=== PATIENT | female | born 1990 | race Caucasian/White ===

== ENCOUNTER 2017-08-31 15:36 | Inpatient (IN) | payer OTHER ==
[2017-08-31 16:16] LABS: Hematocrit 40 % (35-47); Hemoglobin 13.8 g/dl (12.0-16.0); Mean Corpuscular HGB Conc 34 g/dl (31-36); Mean Corpuscular Hemoglobin 31 pg (27-31); Mean Corpuscular Volume 91 fL (80-97); Mean Platelet Volume 9 um3 (7.4-10.4); Red Blood Count 4.38 10^6/ul (4.0-5.4); Red Cell Distribution Width 12 % (10.5-15); White Blood Count 8.5 10^3/ul (3.5-10.8)
[2017-08-31 16:30] LABS: ALT 22 U/L (7-52); AST 17 U/L (13-39); Albumin 4.1 g/dL (3.2-5.2); Alkaline Phosphatase 35 U/L (34-104); Anion Gap 6 mmol/L (2-11); BUN/Creatinine Ratio 17.7 (8-20); Blood Urea Nitrogen 14 mg/dL (6-24); CO2 Carbon Dioxide 26 mmol/L (22-32); Calcium 9.2 mg/dL (8.6-10.3); Chloride 105 mmol/L (101-111); EGFR African American 111.4 (>60); EGFR Non-African American 86.7 (>60); Globulin 2.8 g/dL (2-4); Glucose 89 mg/dL (70-100); Potassium 4.2 mmol/L (3.5-5.0); Sodium 137 mmol/L (133-145); Total Protein 6.9 g/dL (6.4-8.9)
[2017-08-31 16:59] LABS: Acetaminophen < 15 mcg/mL; Alcohol < 10 mg/dL (<10); Salicylate < 2.50 mg/dL (<30)
[2017-08-31 17:14] LABS: TSH (Thyroid Stimulating Horm) 1.67 mcIU/mL (0.34-5.60)
[2017-08-31 19:00] LABS: Urine Bacteria Absent (Absent); Urine Bilirubin Negative (Negative); Urine Glucose Negative (Negative); Urine Nitrite Negative (Negative)
[2017-08-31 19:09] LABS: Benzodiazepine Urine Screen None Detected (None Detect)
--- NOTE | 2017-09-01 08:40 | ED ---
Deshawn Bianchi Angela, scribed for Edward Cervantes MD on 08/31/17 at 1602 . Psychiatric Complaint - HPI Summary HPI Summary: This pt is a 27 y/o female presenting to [facility] c/o SI with a plan and depression. Pt reports that she has a PMHx of bipolar disorder and depression. She notes that she has a plan to go to a place that is 24 minutes away from her house and overdose on Benadryl and alcohol. Pt states she has not had her medications adjusted since December 2015. Pt reports that she has been trying to get an appointment for the past 3 months now. She is currently on Depakote, lexapro, wellbutrin. - History Of Current Complaint Chief Complaint: EDMentalHealth Time Seen by Provider: 08/31/17 15:47 Hx Obtained From: Patient Onset/Duration: Lasting Days Timing: Days Character: Depressed Aggravating Factor(s): Recent Stress - not being able to get an appointment Associated Signs And Symptoms: Positive: Hostile Has Suicidal: Reports: Thoughts, With A Plan Has Homicidal: Denies: Thoughts, With A Plan - Allergies/Home Medications Allergies/Adverse Reactions: Allergies Allergy/AdvReac Type Severity Reaction Status Date / Time Sulfa Antibiotics Allergy Anaphylatic Verified 08/31/17 16:39 Shock PMH/Surg Hx/FS Hx/Imm Hx Endocrine/Hematology History: Denies: Hx Diabetes Cardiovascular History: Denies: Hx Hypertension Psychiatric History: Reports: Hx Anxiety, Hx Depression, Hx Bipolar Disorder Infectious Disease History: No Infectious Disease History: Denies: Traveled Outside the [place] in Last 30 Days - Family History Known Family History: Negative: Hypertension - Social History Alcohol Use: None Substance Use Type: Reports: None Smoking Status (MU): Never Smoked Tobacco Review of Systems Negative: Fever, Chills Eyes: Negative ENT: Negative Cardiovascular: Negative Respiratory: Negative Gastrointestinal: Negative Genitourinary: Negative Musculoskeletal: Negative Positive: Depressed, Other - SI with a plan All Other Systems Reviewed And Are Negative: Yes Physical Exam - Summary Physical Exam Summary: VITAL SIGNS: Reviewed. GENERAL: Patient is a well-developed and nourished female who is lying comfortable in the stretcher. Patient is not in any acute respiratory distress. Pt is crying and appears sad. HEAD AND FACE: No signs of trauma. No ecchymosis, hematomas or skull depressions. No sinus tenderness. EYES: PERRLA, EOMI x 2, No injected conjunctiva, no nystagmus. EARS: Hearing grossly intact. Ear canals and tympanic membranes are within normal limits. MOUTH: Oropharynx within normal limits. NECK: Supple, trachea is midline, no adenopathy, no JVD, no carotid bruit, no c- spine tenderness, neck with full ROM. CHEST: Symmetric, no tenderness at palpation LUNGS: Clear to auscultation bilaterally. No wheezing or crackles. CVS: Regular rate and rhythm, S1 and S2 present, no murmurs or gallops appreciated. ABDOMEN: Soft, non-tender. No signs of distention. No rebound no guarding, and no masses palpated. Bowel sounds are normal. EXTREMITIES: FROM in all major joints, no edema, no cyanosis or clubbing. NEURO: Alert and oriented x 3. No acute neurological deficits. Speech is normal and follows commands. SKIN: Dry and warm PSYCH: Depressed, quiet, with suicidal thoughts and plan. No homicidal thoughts or plan. No signs of psychosis or pressure speech. No tangential speech. Triage Information Reviewed: Yes Vital Signs On Initial Exam: Initial Vitals Temp Pulse Resp BP Pulse Ox 98.4 F 78 20 122/74 99 08/31/17 15:40 08/31/17 15:40 08/31/17 15:40 08/31/17 15:40 08/31/17 15:40 Vital Signs Reviewed: Yes - Alonzo Coma Scale Coma Scale Total: 15 Diagnostics - Vital Signs Vital Signs Temp Pulse Resp BP Pulse Ox 08/31/17 15:40 98.4 F 78 20 122/74 99 - Laboratory Result Diagrams: 08/31/17 16:03 08/31/17 16:03 Lab Statement: Any lab studies that have been ordered have been reviewed, and results considered in the medical decision making process. Course/Dx - Course Assessment/Plan: This pt is a 27 y/o female presenting to [facility] c/o SI with a plan and depression. Pt reports that she has a PMHx of bipolar disorder and depression. She notes that she has a plan to go to a place that is 24 minutes away from her house and overdose on Benadryl and alcohol. Pt states she has not had her medications adjusted since December 2015. Pt reports that she has been trying to get an appointment for the past 3 months now. She is currently on Depakote, lexapro, wellbutrin. All blood work within normal limits. Pt is medically cleared. Pt is a waiting for MHE. Pt will be signed out at shift change pending dispo, awaiting MHE. - Differential Dx/Clinical Impression Provider Diagnosis: Depression Discharge - Discharge Plan Condition: Stable Disposition: OTHER Discharge Disposition Comment: signed out at shift change, pending dispo, awaiting M[facility]. Referrals: [facility] - Jose Maria MONSALVE [Primary Care Provider] - The documentation as recorded by the Deshawn henderson Angela accurately reflects the service I personally performed and the decisions made by , Edward Cervantes MD.
[2017-09-01] MEDS ORDERED: Divalproex ER TAB(*) 500 MG PO ONE (09:16)
[2017-09-01] MEDS: BuPROPion XL* 300 MG TAB.XL PO SCH (10:35)
[2017-09-01 11:26] LABS: Manual Entry Verification HAN0055; UR Preg Internal Control QC Line Present
[2017-09-01] MEDS ORDERED: Al Hydrox/Mg Hydrox/Simet LIQ* 30 ML UDC PO PRN (11:29)
[2017-09-01] MEDS ORDERED: Acetaminophen TAB* 325 MG PO PRN (11:29)
[2017-09-01] MEDS: hydrOXYzine HCL TAB* 50 MG PO PRN (19:44)
[2017-09-01] MEDS: Citalopram TAB* 40 MG PO SCH (21:03)
[2017-09-01] MEDS: Divalproex DR TAB(*) 500 MG PO SCH (21:03)
[2017-09-01] MEDS: diPHENhydraMINE PO* 50 MG PO SCH (21:03)
[2017-09-02] MEDS: Divalproex DR TAB(*) 500 MG PO SCH (08:20)
[2017-09-02] MEDS: hydrOXYzine HCL TAB* 50 MG PO PRN ×2 (09:17→20:20)
[2017-09-02] MEDS: BuPROPion XL* 300 MG TAB.XL PO SCH (10:12)
--- NOTE | 2017-09-02 12:02 | PN ---
[facility]: Group Therapy Note - Service Type Service Type: 49941 Group Psychotherapy - Cognitive Behavioral Group Therapy ( CBT):Patient attended CBT programming this morning and presented with flat affect that did not vary with discussion. Although responsive to direct prompts to respond to questions, patient did not engage in spontaneous conversation.
[2017-09-02] MEDS: Divalproex DR TAB(*) 250 MG PO SCH (20:19)
[2017-09-02] MEDS: diPHENhydraMINE PO* 50 MG PO SCH (20:20)
[2017-09-02] MEDS: Citalopram TAB* 40 MG PO SCH (20:21)
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
[2017-09-03] MEDS: Divalproex DR TAB(*) 250 MG PO SCH ×2 (08:37→08:51)
[2017-09-03] MEDS: diPHENhydraMINE PO* 50 MG PO SCH (08:38)
[2017-09-03] MEDS: CMCS:Lisdexamfetamine(NF) 10 MG CAP PO SCH (08:52)
[2017-09-03] MEDS: buPROPion SR TAB.SR* 200 MG PO SCH (08:52)
[2017-09-03] MEDS: hydrOXYzine HCL TAB* 50 MG PO PRN (09:44)
--- NOTE | 2017-09-03 16:08 | PN ---
Subjective - Subjective Service Type: 34447 Hosp care 15 min low complexity Subjective: Patient denies SI. Would like to go outside on fresh air break. Patient complains about insomnia and requests an increase in her Benadryl to 100mg, which is what she takes on an outpatient basis. No other complaints. Objective - Appearance Appearance: Well Developed/Nourished Dysmorphic Features: No Hygiene: Normal Grooming: Well Kept - Behavior Psychomotor Activities: Normal Exhibits Abnormal Movement: No - Attitude and Relatedness Attitude and Relatedness: Cooperative Eye Contact: Fair - Speech Quality: Unpressured Latencies: Normal Quantity: Appropriate - Mood Patient's Decription of Mood: "Good" - Affect Observed Affect: Fair Affect Consistent with: Euthymia - Thought Process Patient's Thought Process: Coherent Thought Content: No Passive Wish, No Suicidal Planning, No Homicidal Ideation, No Paranoid Ideation - Sensorium Experiencing Hallucinations: No, Sensorium is Clear Type of Hallucinations: Visual: No, Auditory: No, Command: No - Level of Consciousness Level of Consciousness: Alert Orientation: Yes Intact, Yes Orientated to Time, Yes Orientated to Place, Yes Orientated to Person - Impulse Control Impulse Control: Tenuous - Insight and Judgement Insight and Judgement: Fair - Group Participation Particating in Group Activities: Yes - Medication Management Medication Management Adherence: Yes Assessment - Assessment Merits Inpatient Hospitalization: Consolidate Improvements, Pending Safe DC Plan Inpatient DSM-IV Dx: Bipolar DO Type II Clinical Impression: 27 y.o. , white female [employer] student with a history of bipolar disorder, arrives seeking voluntary psychiatric admission for increased rapid mood cycling and inability to contract for safety. Plan - Plan Treatment Plan: Name: HEAVENLY CANAS Birthdate: 1990 [id number] Patient having Depakote titrated, bupropion tapered and new to Vyvanse for binge -eating disorder. Will increase scheduled Benadryl to 100mg PO qhs for insomnia. Continue inpatient treatment. Continued Medication Management: Different Medication Medications: Current Medications Acetaminophen (Tylenol Tab*) 650 mg PO Q4H PRN PRN Reason: for pain; or Temp >101 F Al Hydrox/Mg Hydrox/Simethicone (Maalox Plus*) 30 ml PO Q4H PRN PRN Reason: INDIGESTION Bupropion HCl (Wellbutrin Sr Tab*) 200 mg PO DAILY [facility] Last Admin: 09/03/17 08:52 Dose: 200 mg Citalopram Hydrobromide (Celexa Tab*) 40 mg PO BEDTIME [facility] Last Admin: 09/02/17 20:21 Dose: 40 mg Divalproex Sodium (Depakote Dr Tab(*)) 750 mg PO BID [facility] Last Admin: 09/03/17 08:51 Dose: 750 mg Hydroxyzine HCl (Atarax Tab*) 50 mg PO Q6H PRN PRN Reason: AGITATION/ANXIETY/INSOMNIA Last Admin: 09/03/17 09:44 Dose: 50 mg Lisdexamfetamine Dimesylate (Vyvanse(Nf)) 60 mg PO DAILY [facility] Last Admin: 09/03/17 08:52 Dose: 60 mg - Discharge Plan Discharge Plan: Inpatient Hospitalization
[2017-09-03] MEDS: Citalopram TAB* 40 MG PO SCH (20:39)
[2017-09-04] MEDS: buPROPion SR TAB.SR* 200 MG PO SCH (08:24)
[2017-09-04] MEDS: Divalproex DR TAB(*) 250 MG PO SCH ×2 (08:24→20:11)
[2017-09-04] MEDS: CMCS:Lisdexamfetamine(NF) 10 MG CAP PO SCH (08:25)
[2017-09-04] MEDS: hydrOXYzine HCL TAB* 50 MG PO PRN ×2 (08:26→16:50)
[2017-09-04] MEDS: Citalopram TAB* 40 MG PO SCH (20:12)
[2017-09-04] MEDS: diPHENhydraMINE PO* 50 MG PO SCH (20:12)
[2017-09-05] MEDS: buPROPion SR TAB.SR* 200 MG PO SCH (08:33)
[2017-09-05] MEDS: CMCS:Lisdexamfetamine(NF) 10 MG CAP PO SCH (08:33)
[2017-09-05] MEDS: Divalproex DR TAB(*) 250 MG PO SCH ×2 (08:33→20:44)
[2017-09-05] MEDS ORDERED: diPHENhydraMINE PO* 50 MG PO PRN (15:28)
--- NOTE | 2017-09-05 15:34 | PN ---
Subjective - Subjective Service Type: 21483 Hosp care 15 min low complexity Subjective: Patient reports much improvement in mood. She states she is feeling "more like myself" and denies SI or urges to self harm. She c/o anxiety and states she has panicky symptoms approx 1-3x per day, seemingly without trigger. She reports sleep is "terrible" and that she is able to fall asleep without difficulty but is wakes often. She also reports intense and vivid dreams. Objective - Appearance Appearance: Well Developed/Nourished, Obese Dysmorphic Features: No Hygiene: Normal Grooming: Well Kept - Behavior Psychomotor Activities: Normal Exhibits Abnormal Movement: No - Attitude and Relatedness Attitude and Relatedness: Cooperative Eye Contact: Good - Speech Quality: Unpressured Latencies: Normal Quantity: Copious - Mood Patient's Decription of Mood: "Great" - Affect Observed Affect: Good Affect Consistent with: Euthymia - Thought Process Patient's Thought Process: Coherent, Goal Directed Thought Content: No Passive Wish, No Suicidal Planning, No Homicidal Ideation, No Paranoid Ideation - Sensorium Experiencing Hallucinations: No, Sensorium is Clear Type of Hallucinations: Visual: No, Auditory: No, Command: No - Level of Consciousness Level of Consciousness: Alert Orientation: Yes Intact, Yes Orientated to Time, Yes Orientated to Place, Yes Orientated to Person - Impulse Control Impulse Control: Tenuous - Insight and Judgement Insight and Judgement: Good - Group Participation Particating in Group Activities: Yes - Medication Management Medication Management Adherence: Yes Assessment - Assessment Merits Inpatient Hospitalization: For Immediate Safety, For Stabilization, For Discharge Planning Inpatient DSM-IV Dx: Bipolar DO Type II; RUTH; panic d/o; binge-eating d/o Clinical Impression: Patient is a 27yo female, , 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 She reports hx of bipolar II d/o with recent episodes of rapid cycling. She presented to her outpatient therapist at [facility] with suicidal ideation. She merits hospitalization for immediate safety and stabilization. Plan - Plan Treatment Plan: Name: HEAVENLY CANAS Birthdate: 1990 [id number] Continue intensive acute psychiatric treatment. Stop buproprion to improve sleep and add prazosin at bedtime for anxiety. Discharge planning to include and [facility]. Continued Medication Management: Different Medication Medications: Current Medications Acetaminophen (Tylenol Tab*) 650 mg PO Q4H PRN PRN Reason: for pain; or Temp >101 F Al Hydrox/Mg Hydrox/Simethicone (Maalox Plus*) 30 ml PO Q4H PRN PRN Reason: INDIGESTION Bupropion HCl (Wellbutrin Sr Tab*) 200 mg PO DAILY [facility] Last Admin: 09/05/17 08:33 Dose: 200 mg Citalopram Hydrobromide (Celexa Tab*) 40 mg PO BEDTIME [facility] Last Admin: 09/04/17 20:12 Dose: 40 mg Diphenhydramine HCl (Benadryl Po*) 100 mg PO BEDTIME [facility] Last Admin: 09/04/17 20:12 Dose: 100 mg Divalproex Sodium (Depakote Dr Tab(*)) 750 mg PO BID [facility] Last Admin: 09/05/17 08:33 Dose: 750 mg Hydroxyzine HCl (Atarax Tab*) 50 mg PO Q6H PRN PRN Reason: AGITATION/ANXIETY/INSOMNIA Last Admin: 09/04/17 16:50 Dose: 50 mg Lisdexamfetamine Dimesylate (Vyvanse(Nf)) 60 mg PO DAILY [facility] Last Admin: 09/05/17 08:33 Dose: 60 mg - Discharge Plan Discharge Plan: Outpatient Follow Up Outpatient Program: [facility] at [place]
[2017-09-05] MEDS: Citalopram TAB* 40 MG PO SCH (20:44)
[2017-09-05] MEDS ORDERED: Prazosin CAP* 1 MG PO SCH (21:00)
[2017-09-06] MEDS: Divalproex DR TAB(*) 250 MG PO SCH ×2 (09:09→21:00)
[2017-09-06] MEDS: CMCS:Lisdexamfetamine(NF) 10 MG CAP PO SCH (09:10)
--- NOTE | 2017-09-06 15:53 | PN ---
Subjective - Subjective Service Type: 59985 Hosp care 15 min low complexity Subjective: Patient is dysphoric and tearful. She states she is worried about results of psychological (Rorschach) testing and the possibility of dissociative identity disorder. She reports feeling many emotions in regards to her childhood and relationship with her father. Patient has been seeking suggestions from staff and treatment team for information on treating mental health. Patient reports mild improvement in sleep last night. She had difficulty with initiating sleep but had less vivid dreams. She agrees to continue titration of prazosin. Objective - Appearance Appearance: Obese Dysmorphic Features: Yes Hygiene: Normal Grooming: Fairly Well Kept - Behavior Psychomotor Activities: Normal Exhibits Abnormal Movement: No - Attitude and Relatedness Attitude and Relatedness: Cooperative Eye Contact: Fair - Speech Quality: Unpressured Latencies: Normal Quantity: Appropriate - Mood Patient's Decription of Mood: "Sad" - Affect Observed Affect: Depressed Affect Consistent with: Dysphoria - Thought Process Patient's Thought Process: Coherent, Goal Directed Thought Content: No Passive Wish, No Suicidal Planning, No Homicidal Ideation, No Paranoid Ideation - Sensorium Experiencing Hallucinations: No, Sensorium is Clear Type of Hallucinations: Visual: No, Auditory: No, Command: No - Level of Consciousness Level of Consciousness: Alert Orientation: Yes Intact, Yes Orientated to Time, Yes Orientated to Place, Yes Orientated to Person - Impulse Control Impulse Control: Intact - Insight and Judgement Insight and Judgement: Good - Group Participation Particating in Group Activities: Yes - Medication Management Medication Management Adherence: Yes Assessment - Assessment Merits Inpatient Hospitalization: For Immediate Safety, For Stabilization, Consolidate Improvements, For Discharge Planning, Pending Safe DC Plan Inpatient DSM-IV Dx: Bipolar DO Type II; RUTH; panic d/o; binge-eating d/o Clinical Impression: Patient is a 27yo female, , 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 She reports hx of bipolar II d/o with recent episodes of rapid cycling. She presented to her outpatient therapist at [facility] with suicidal ideation. She merits hospitalization for immediate safety and stabilization. Plan - Plan Treatment Plan: Name: HEAVENLY CANAS Birthdate: 1990 [id number] Continue intensive acute psychiatric treatment. Increase prazosin at bedtime for anxiety. Discharge planning to include and [facility]. Continued Medication Management: Different Medication Medications: Current Medications Acetaminophen (Tylenol Tab*) 650 mg PO Q4H PRN PRN Reason: for pain; or Temp >101 F Al Hydrox/Mg Hydrox/Simethicone (Maalox Plus*) 30 ml PO Q4H PRN PRN Reason: INDIGESTION Citalopram Hydrobromide (Celexa Tab*) 40 mg PO BEDTIME [facility] Last Admin: 09/05/17 20:44 Dose: 40 mg Diphenhydramine HCl (Benadryl Po*) 100 mg PO BEDTIME PRN PRN Reason: INSOMNIA Divalproex Sodium (Depakote Dr Tab(*)) 750 mg PO BID [facility] Last Admin: 09/06/17 09:09 Dose: 750 mg Hydroxyzine HCl (Atarax Tab*) 50 mg PO Q6H PRN PRN Reason: AGITATION/ANXIETY/INSOMNIA Last Admin: 09/04/17 16:50 Dose: 50 mg Lisdexamfetamine Dimesylate (Vyvanse(Nf)) 60 mg PO DAILY [facility] Last Admin: 09/06/17 09:10 Dose: 60 mg Prazosin HCl (Minipress Cap*) 2 mg PO BEDTIME [facility] - Discharge Plan Discharge Plan: Outpatient Follow Up Outpatient Program: Counseling/Psych Services at [facility]
[2017-09-06] MEDS ORDERED: Prazosin CAP* 1 MG PO SCH (21:00)
[2017-09-06] MEDS: Citalopram TAB* 40 MG PO SCH (21:01)
[2017-09-07 07:54] VITALS: BP 102/60
[2017-09-07] MEDS: CMCS:Lisdexamfetamine(NF) 10 MG CAP PO SCH (08:15)
[2017-09-07] MEDS: Divalproex DR TAB(*) 250 MG PO SCH (08:15)
[2017-09-07] MEDS ORDERED: Influenza VAC *QUAD* 2017-18* 0.5 ML SYRINGE IM ONE (16:00)
[2017-09-07] MEDS ORDERED: Pneumococcal *Vac Polyvalent 0.5 ML VIAL IM ONE (16:00)
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
--- NOTE | 2017-09-08 09:57 | DS ---
Subjective - Subjective Service Types: 78911 Hosp [place] Day Mgmt simple under 30 min Discharge Date: 09/07/17 Subjective: Improved. 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 She reports improvement in sleep. She denies depressed mood or agitation. She expresses appreciation and benefit from hospitalization. Objective - Appearance Appearance: Obese Dysmorphic Features: No Hygiene: Normal Grooming: Well Kept - Behavior Psychomotor Activities: Normal Exhibits Abnormal Movement: No - Attitude and Relatedness Attitude and Relatedness: Cooperative Eye Contact: Good - Speech Quality: Unpressured Latencies: Normal Quantity: Appropriate - Mood Patient's Decription of Mood: "better" - Affect Observed Affect: Good Affect Consistent with: Euthymia - Thought Process Patient's Thought Process: Coherent, Goal Directed Thought Content: No Passive Wish, No Suicidal Planning, No Homicidal Ideation, No Paranoid Ideation - Sensorium Experiencing Hallucinations: No, Sensorium is Clear Type of Hallucinations: Visual: No, Auditory: No, Command: No - Impulse Control Impulse Control: Intact - Insight and Judgement Insight and Judgement: Good - Group Participation Particating in Group Activities: Yes - Medication Management Medication Management Adherence: Yes Treatment Course & Assessment Clinical Course & Impression: Patient is a 27yo female, , first year student of [employer]. She reports hx of bipolar II d/o with recent episodes of rapid cycling. She presented to her outpatient therapist at [facility] with suicidal ideation and was transported to the ED. She was admitted to adult [facility] on voluntary status. Medication regimen was changed to target insomnia, acute stress reaction and bipolar d/o. Patient reported recent initiation of phentermine for binge eating disorder. She agreed to change to vyvanse and to taper off of buproprion. Initial valproic acid level was subtherapeutic and depakote dose increased to 750mg BID. After 3 days, VA level theraputic at 81.0 Patient reported vivid and disturbing dreams. She responded well to initiation of prazosin. Patient participated in psychological testing with Dr Baljeet Manrique. She was notified of results including bipolar disorder and questionable dissociative identity disorder. She requested information on treatment for mental health symptoms and was receptive to staff suggestions. Patient was safe on all checks and denied suicidal ideation. She was decreased to q30min observation and allowed staff pass and computer use. She participated fully in programming. She was interactive and pleasant with staff and peers. Merits Inpatient Hospitalization: No Clear for Discharge: Adequate Clinical Respons, Acceptable Safety Profile Inpatient DSM-IV Dx: Bipolar DO Type II; [facility]; panic d/o; binge-eating d/o Discharge Planning - Discharge Planning Discharge Plan: Outpatient Follow Up Outpatient Program: Counseling/Psych Services at [facility] Recommendations for Continuing Care: Medication Management, Psychotherapy, Therapeutic Drug Levels Medications: diPHENhydraMINE PO* [Benadryl PO 50 MG CAP*] 50 mg PO BEDTIME PRN 09/01/17 [ History Confirmed 09/01/17] Divalproex DR TAB(*) [Depakote DR TAB(*)] 750 mg PO BID #84 tab.dr 09/07/17 [Rx] Escitalopram Oxalate [Lexapro 20 mg] 20 mg PO BEDTIME #14 tab 09/07/17 [Rx] Lisdexamfetamine(NF) [Vyvanse(NF)] 60 mg PO DAILY #30 cap MDD 60mg 09/07/17 [Rx] Prazosin CAP* [Minipress CAP*] 2 mg PO BEDTIME #14 cap 09/07/17 [Rx] The above were electronically prescribed to [facility] in [place], [place]. Discharge Planning: Prescriptions provided for discharge [X] Yes [] No Follow up care details as per social work arrangements. Patient has appt at [facility] on 09/08 at 3pm with COREY Bryant Patient response to discharge plan: [X] eager for discharge [X] agreeable with discharge plan [] ambivalent about discharge [] disagrees with discharge today
== END 2017-09-07 16:35 | disposition home or self-care (01) | DRG 885 ==
LOC: ED 15:36 → BSU 09-01 11:29
PROVIDERS: ADMIT Psychiatry & Neurology Psychiatry; ATTEND Psychiatry & Neurology Psychiatry
PROC: GZHZZZZ Group Psychotherapy (ICD-10-PCS; principal; 2017-09-02)
DX: F31.81 Bipolar II disorder (principal); R45.851 Suicidal ideations; F41.0 Panic disorder [episodic paroxysmal anxiety]; F41.1 Generalized anxiety disorder; F50.81 Binge eating disorder; R40.2412 Glasgow coma scale score 13-15, at arrival to emergency department; Z81.8 Family history of other mental and behavioral disorders; Z88.2 Allergy status to sulfonamides
CPT/HCPCS: 36415; 80053; 80164; 80307; 80320; 80329; 81003; 81015; 81025; 84443; 85025; 87086; 90686; 90732; 90853; 93005; 96102; 99222; 99231; 99238; A9270-GY; G0480